=== PATIENT | female | born 1930 | race Caucasian/White ===

== ENCOUNTER 2017-10-26 15:17 | Outpatient (CLI) | payer OTHER ==
[~2017-10-26 15:17] MED LIST: AVELOX ABC PAC400 MG PO; PLAVIX75 MG; SIMVASTATIN10 MG; ZOLOFT25 MG
== END 2017-10-26 15:24 | disposition home or self-care (01) ==
LOC: RAD 15:17
DX: C43.71 Malignant melanoma of right lower limb, including hip (principal)